=== PATIENT | male | born 1975 | race Caucasian/White ===

== ENCOUNTER 2017-05-30 15:25 | Emergency (ER) | payer BC ==
--- NOTE | 2017-05-30 15:46 | ER ---
Nurse's Notes [facility] Name: Francisco Barrera Age: 41 yrs Sex: Male : 1975 Arrival Date: 05/30/2017 Time: 15:26 Bed 11 Private MD: Ezra Garcia V Diagnosis: Radiculopathy Presentation: 05/30 15:32 Presenting complaint: Patient states: I was lifting something above my head and I felt la1 something tear by my left shoulder blade and since then I have had very bad pain in my back and left arm. Transition of care: patient was not received from another setting of care. Onset of symptoms was May 30, 2017. Initial Sepsis Screen: Does the patient meet any 2 criteria? No. Patient's initial sepsis screen is negative. Does the patient have a suspected source of infection? No. Patient initial sepsis screen negative. Care prior to arrival: None. 15:32 Method Of Arrival: Ambulatory la1 15:32 Acuity: TERESO 4 la1 Triage Assessment: 15:50 General: Appears uncomfortable, slender, well groomed, well developed, well nourished, rk2 Behavior is calm, cooperative. 15:50 Pain: Complains of pain in left scapular area and left arm. Neuro: Level of rk2 Consciousness is alert, obeys commands, Oriented to person, place, time, situation. Respiratory: Airway is patent Respiratory effort is even, unlabored. Derm: Skin is pink, warm \T\ dry. Musculoskeletal: Capillary refill < 3 seconds. Historical: - Allergies: 15:33 No Known Allergies; la1 - PMHx: 15:33 None; la1 - Immunization history:: Adult Immunizations up to date. - Social history:: Smoking status: Patient/guardian denies using tobacco. Screenin:50 Abuse screen: Denies threats or abuse. rk2 15:50 Nutritional screening: No deficits noted. Tuberculosis screening: No symptoms or risk rk2 factors identified. Fall Risk None identified. Vital Signs: 15:33 BP 131 / 95; Pulse 86; Resp 15; Temp 98.0(TE); Pulse Ox 100% on R/A; Weight 90.72 kg; la1 Height 6 ft. 0 in. (182.88 cm); 15:33 Body Mass Index 27.12 (90.72 kg, 182.88 cm) la1 ED Course: 15:26 Patient arrived in ED. as 15:26 Ezra Garcia MD is Private Physician. as 15:33 Triage completed. la1 15:33 Arm band placed on left wrist. la1 15:34 Nuria Mclaughlin FNP-C [facility]. kb 15:34 Andrés Gutierrez MD is Attending Physician. kb 15:35 Tracey Joyenr, RN is Primary Nurse. rk2 15:50 Patient has correct armband on for positive identification. Call light in reach. rk2 16:03 No provider procedures requiring assistance completed. Patient did not have IV access rk2 during this emergency room visit. Administered Medications: 15:57 Drug: TORadol 60 mg Route: IM; Site: left deltoid; rk2 16:03 Follow up: Response: Given \T\ DC rk2 Outcome: 15:46 Discharge ordered by . kb 16:03 Discharged to home ambulatory. rk2 16:03 Condition: unchanged 16:03 Discharge instructions given to patient, Prescriptions given X 2. 16:04 Patient left the ED. rk2 Signatures: Nuria Mclaughlin FNP-C FNP-Nancy Donahue Lee, RN RN la1 Tracey Joyner, MAXX RN rk2
--- NOTE | 2017-05-30 15:46 | EDPHYS ---
Physician Documentation [facility] Name: Francisco Barrera Age: 41 yrs Sex: Male : 1975 Arrival Date: 05/30/2017 Time: 15:26 Bed 11 Private MD: Ezra Garcia V ED Physician Andrés Gutierrez HPI: 05/30 15:44 This 41 yrs old Male presents to ER via Ambulatory with complaints of Back kb Pain. 15:44 The patient presents with pain that is acute. The symptoms are located in the left kb scapular area. Onset: The symptoms/episode began/occurred yesterday. The pain radiates to the left arm. Associated signs and symptoms: The patient has no apparent associated signs or symptoms. The problem was sustained when lifting heavy object. Modifying factors: The patient symptoms are alleviated by nothing, the patient symptoms are aggravated by any movement. Severity of symptoms: At their worst the symptoms were moderate, in the emergency department the symptoms are unchanged. The patient has not experienced similar symptoms in the past. The patient has not recently seen a physician. Pt states he was lifting a carport and felt a pop in behind left shoulder blade. States he has been uncomfortable since then. Tingling/pain radiates down left arm. . Historical: - Allergies: 15:33 No Known Allergies; la1 - PMHx: 15:33 None; la1 - Immunization history:: Adult Immunizations up to date. - Social history:: Smoking status: Patient/guardian denies using tobacco. ROS: 15:43 Constitutional: Negative for fever, chills, and weight loss, Cardiovascular: Negative kb for chest pain, palpitations, and edema, Respiratory: Negative for shortness of breath, cough, wheezing, and pleuritic chest pain, Abdomen/GI: Negative for abdominal pain, nausea, vomiting, diarrhea, and constipation, Skin: Negative for injury, rash, and discoloration, Neuro: Negative for headache, weakness, numbness, tingling, and seizure. 15:43 Back: Positive for pain at rest, pain with movement, of the left scapular area. 15:43 MS/extremity: Positive for tingling, of the left arm. Exam: 15:43 Constitutional: This is a well developed, well nourished patient who is awake, alert, kb and in no acute distress. Head/Face: Normocephalic, atraumatic. Neck: Trachea midline, no thyromegaly or masses palpated, and no cervical lymphadenopathy. Supple, full range of motion without nuchal rigidity, or vertebral point tenderness. No Meningismus. Chest/axilla: Normal chest wall appearance and motion. Nontender with no deformity. No lesions are appreciated. Cardiovascular: Regular rate and rhythm with a normal S1 and S2. No gallops, murmurs, or rubs. Normal PMI, no JVD. No pulse deficits. Respiratory: Lungs have equal breath sounds bilaterally, clear to auscultation and percussion. No rales, rhonchi or wheezes noted. No increased work of breathing, no retractions or nasal flaring. Abdomen/GI: Soft, non-tender, with normal bowel sounds. No distension or tympany. No guarding or rebound. No evidence of tenderness throughout. Back: No spinal tenderness. No costovertebral tenderness. Full range of motion. Skin: Warm, dry with normal turgor. Normal color with no rashes, no lesions, and no evidence of cellulitis. MS/ Extremity: Pulses equal, no cyanosis. Neurovascular intact. Full, normal range of motion. Neuro: Awake and alert, GCS 15, oriented to person, place, time, and situation. Cranial nerves II-XII grossly intact. Motor strength 5/5 in all extremities. Sensory grossly intact. Cerebellar exam normal. Normal gait. Vital Signs: 15:33 BP 131 / 95; Pulse 86; Resp 15; Temp 98.0(TE); Pulse Ox 100% on R/A; Weight 90.72 kg; la1 Height 6 ft. 0 in. (182.88 cm); 15:33 Body Mass Index 27.12 (90.72 kg, 182.88 cm) la1 MDM: 15:34 Patient medically screened. kb 15:43 Data reviewed: vital signs, nurses notes. Data interpreted: Pulse oximetry: on room air kb is 100 %. Interpretation: normal. Counseling: I had a detailed discussion with the patient and/or guardian regarding: the historical points, exam findings, and any diagnostic results supporting the discharge/admit diagnosis, the need for outpatient follow up, a family practitioner, to return to the emergency department if symptoms worsen or persist or if there are any questions or concerns that arise at home. 15:44 ED course: Pt has full ROM of left shoulder/arm. No spinal tenderness upon palpation. kb No tenderness upon palpation of shoulder. . Administered Medications: 15:57 Drug: TORadol 60 mg Route: IM; Site: left deltoid; rk2 16:03 Follow up: Response: Given \T\ DC rk2 Disposition: 05/31 07:50 Co-signature as Attending Physician, Andrés Gutierrez MD Available for consultation at ps1 all times. . Disposition: 05/30/17 15:46 Discharged to Home. Impression: Radiculopathy. - Condition is Stable. - Discharge Instructions: Cervical Radiculopathy, [id number]. - Prescriptions for Prednisone 20 mg Oral Tablet - take 1 tablet by ORAL route once daily for 5 days; 5 tablet. Cyclobenzaprine 10 mg Oral Tablet - take 1 tablet by ORAL route every 8 hours As needed; 21 tablet. - Medication Reconciliation Form, Thank You Letter, Antibiotic Education, Prescription Opioid Use, Work release form form. - Follow up: Emergency Department; When: As needed; Reason: Worsening of condition. Follow up: Private Physician; When: 2 - 3 days; Reason: Recheck today's complaints, Continuance of care, Re-evaluation by your physician. Signatures: Nuria Mclaughlin, [employer]-Nilesh Turner RN RN la1 Andrés Gutierrez MD MD ps1 Tracey Joyner RN RN rk2
[2017-05-30] MEDS ORDERED: KETOROLAC 30 MG/ML INJ ONE (15:50)
== END 2017-05-30 16:04 | disposition home or self-care (01) ==
LOC: ER 15:25
DX: M54.10 Radiculopathy, site unspecified (principal)
CPT/HCPCS: 96372; 99283

== ENCOUNTER 2017-07-16 20:45 | Emergency (ER) | payer BC, SELFPAY ==
[2017-07-16] MEDS ORDERED: MECLIZINE HCL 12.5 MG TAB ONE ×2 (21:16→21:18)
[2017-07-16] MEDS ORDERED: NA CHLORIDE 0.9% 1,000 ML ONE ×2 (21:16→22:50)
[2017-07-16 21:43] LABS: Absolute Lymphocytes (CBC) 1.8 K/uL (0.7-4.9); Absolute Monocytes 1.2 K/uL (0.1-1.3); Absolute Neutrophil 11.4 K/uL (1.8-8.0); Basophils % 0.4 % (0-1.3); Eosinophils % 0.3 % (0-4.4); Hematocrit 48.7 % (39.6-49.0); Lymphocytes % 12.3 % (15.3-44.8); MCH 31.2 pg (27.0-35.0); MCV 89.2 fL (80-100); MPV 8.9 fL (7.6-11.3); Monocytes % 8.3 % (3.3-12.3); RBC Red Blood Cell Count 5.45 M/uL (4.33-5.43)
[2017-07-16 21:48] LABS: Potassium 3.5 mEq/L (3.6-5.0)
[2017-07-16 21:51] LABS: Albumin 4.5 g/dL (3.2-5.5); Bilirubin Total 0.7 mg/dL (0.3-1.2); Protein, Total 7.7 g/dL (6.0-8.3)
[2017-07-16 23:11] LABS: Absolute Lymphocytes (CBC) 1.7 K/uL (0.7-4.9); Absolute Monocytes 1.1 K/uL (0.1-1.3); Absolute Neutrophil 11.3 K/uL (1.8-8.0); Basophils % 0.5 % (0-1.3); Eosinophils % 0.1 % (0-4.4); Hematocrit 46.5 % (39.6-49.0); Lymphocytes % 11.9 % (15.3-44.8); MCH 31.2 pg (27.0-35.0); MCV 89.6 fL (80-100); MPV 8.5 fL (7.6-11.3); Monocytes % 7.6 % (3.3-12.3); RBC Red Blood Cell Count 5.19 M/uL (4.33-5.43)
[2017-07-16 23:21] LABS: Urine Blood NEGATIVE (NEG); Urine Glucose NEGATIVE (NEG); Urine Protein NEGATIVE (NEG); Urine pH 6.5 (5.0-7.0)
[2017-07-16 23:25] LABS: Barbiturates NEGATIVE; Benzodiazepines NEGATIVE; Cocaine NEGATIVE; Opiates NEGATIVE; Phencyclidine NEGATIVE; THC Cannibis NEGATIVE
[2017-07-16 23:26] LABS: Potassium 3.6 mEq/L (3.6-5.0)
[2017-07-16 23:29] LABS: METHAMPHETAM POSITIVE (NEGATIVE)
[2017-07-16 23:32] LABS: Albumin 4.1 g/dL (3.2-5.5); Bilirubin Direct 0.1 mg/dL (0-0.2); Bilirubin Total 0.7 mg/dL (0.3-1.2); Magnesium 1.9 mg/dL (1.8-2.5); Protein, Total 7.2 g/dL (6.0-8.3)
[2017-07-16 23:33] LABS: Protime INR 1.05
[2017-07-16] MEDS ORDERED: LORazepam 2 MG/ML VIAL ONE (23:34)
[2017-07-16 23:36] LABS: CKMB Creatine Kinase MB 0.9 ng/ml (0.3-4.0)
--- NOTE | 2017-07-16 23:50 | EDPHYS ---
Physician Documentation [facility] Name: Francisco Barrera Age: 41 yrs Sex: Male : 1975 Arrival Date: 07/16/2017 Time: 20:46 Bed 13 Private MD: ED Physician Sae King Historical: - Home Meds: 07/16 20:53 gabapentin 100 mg oral cap 3 caps 3 times per day [Active]; tl3 - PMHx: 20:53 None; tl3 - PSHx: 20:53 None; tl3 - Immunization history:: Adult Immunizations up to date. - Social history:: Smoking status: Patient/guardian denies using tobacco, never smoked. - Ebola Screening: : Patient denies travel to an Ebola-affected area in the 21 days before illness onset. Vital Signs: 20:53 BP 163 / 11; Pulse 107; Resp 20; Temp 97.02(T); Pulse Ox 100% ; Weight 86.18 kg; Height tl3 6 ft. 1 in. (185.42 cm); 22:15 BP 143 / 105 LA Sitting (auto/reg); Pulse 126 LA; Resp 19; Pulse Ox 99% on R/A; bs1 23:30 BP 164 / 102; Pulse 142; Resp 15; Pulse Ox 100% on R/A; bs1 23:39 BP 152 / 97; Pulse 125; Resp 13 S; Pulse Ox 100% on 2 lpm NC; bs1 23:48 BP 151 / 96; Pulse 126; Resp 15; Pulse Ox 100% on R/A; bs1 20:53 Body Mass Index 25.07 (86.18 kg, 185.42 cm) tl3 MDM: 21:02 Patient medically screened. 07/16 21:07 Order name: CBC with Diff; Complete Time: 21:58 07/16 21:58 Interpretation: Normal except: WBC 14.5; RBC 5.45; LYM% 12.3; STEVEN% 78.7; NEUT A 11.4. 07/16 21:07 Order name: CMP; Complete Time: 21:58 07/16 21:58 Interpretation: Normal except: K 3.5; GLUC 193; GFR 66. 07/16 22:37 Order name: Basic Metabolic Panel; Complete Time: 06:32 07/16 22:37 Order name: BNP; Complete Time: 06:32 tw4 07/16 22:37 Order name: CBC with Diff; Complete Time: 06:32 4 07/16 22:37 Order name: Ckmb; Complete Time: 06:32 4 07/16 22:37 Order name: CPK; Complete Time: 06:32 tw4 07/16 22:37 Order name: LFT's; Complete Time: 06:32 4 07/16 22:37 Order name: Magnesium; Complete Time: 06:32 4 07/16 22:37 Order name: PT-INR; Complete Time: 06:32 tw4 07/16 22:37 Order name: Ptt, Activated; Complete Time: 06:32 4 07/16 22:37 Order name: Troponin (emerg Dept Use Only); Complete Time: 06:32 4 07/16 22:41 Order name: UDS; Complete Time: 06:32 bs1 07/16 23:15 Order name: Urine Dipstick--Ancillary (enter results); Complete Time: 06:32 ms 07/16 22:37 Order name: XRAY Chest (1 view); Complete Time: 06:32 4 07/16 22:37 Order name: EKG; Complete Time: 22:38 4 07/16 22:37 Order name: Cardiac monitoring; Complete Time: 23:37 4 07/16 22:37 Order name: EKG - Nurse/Tech; Complete Time: 23:37 4 07/16 22:37 Order name: IV Saline Lock; Complete Time: 23:37 4 07/16 22:37 Order name: Labs collected and sent; Complete Time: 23:37 4 07/16 22:37 Order name: O2 Per Protocol; Complete Time: 23:38 tw4 07/16 22:37 Order name: O2 Sat Monitoring; Complete Time: 23:37 tw4 07/16 22:37 Order name: Urine Dipstick-Ancillary (obtain specimen); Complete Time: 23:50 tw4 Administered Medications: 21:25 Drug: Meclizine 25 mg Route: PO; bs1 22:27 Follow up: Response: No adverse reaction bs1 21:32 Drug: NS 0.9% 1000 ml Route: IV; Rate: 1 bolus; Site: right antecubital; bs1 22:27 Follow up: IV Status: Completed infusion bs1 22:58 Drug: NS 0.9% 1000 ml Route: IV; Rate: 1 bolus; Site: right antecubital; bs1 07/17 00:10 Follow up: IV Status: Completed infusion bs1 07/16 23:39 Drug: Ativan 1 mg Route: IVP; Site: right antecubital; bs1 07/17 00:07 Follow up: Response: No adverse reaction bs1 Point of Care Testing: Blood Glucose: 07/16 21:00 Blood Glucose: 183 mg/dL; tl3 Ranges: Critical Glucose Levels:Adult <50 mg/dl or >400 mg/dl <40 mg/dl or >180 mg/dl Disposition: 07/16/17 23:50 Discharged to Home. Impression: Other psychoactive substance abuse with intoxication, uncomplicated. - Condition is Stable. - Discharge Instructions: Alcohol and Drug Addiction, Finding Treatment, Polysubstance Abuse. - Medication Reconciliation Form, Thank You Letter, Antibiotic Education, Prescription Opioid Use form. - Follow up: Private Physician; When: As needed; Reason: Recheck today's complaints, Continuance of care, Re-evaluation by your physician. - Problem is new. - Symptoms have improved. Addendum: 07/29/2017 06:33 Addendum: Pt is a 41 year old male that states that he drank too much water and feels t w4 "overhyrated" Pt states that he has been feeling dizzy. Pt denies CP, SOB,nausea, vomiting. Addendum: ROS: General: denies fever, chills, malaise ENT: denies sore throat, ear pain Resp: denies SOB, TIAN, cough CV: denies CP,palpitations, Abdomen: denies abdominal pain, nausea, vomiting Ext; denies injury edema, Neuro: positive for dizziness, negative for weakness, numbness. Addendum: PE: General: well developed male in NAD HEENT: PERRLA, EOMI Resp: CTAB, no resp distress CV: RRR, nl S1, S2, no murmurs or gallops. Abdomen: soft, nondistended, nontender, nl BS Ext: nontender, no edema Neuro: alert and oriented times three, CN grossly intact, . Addendum: ED course: pt was found to have a positive drug screen that was positive for amphetamines. Pt later admitted taking an unknown substance that he got from "a waylon in a bar". Pt states that his symptoms occurred soon thereafter. Pt given Ativan for anxiety. Pt counseled on drug use and told to return to the ED if symptoms worsen. Signatures: Dispatcher [employer] EDMS Tami López RN RN aa1 Pearl Abreu RN RN bs1 Sae King MD MD tw4 Mariana Arango RN RN tl3 Corrections: (The following items were deleted from the chart) 07/17 00:10 07/16 23:50 07/16/2017 23:50 Discharged to Home. Impression: Other psychoactive aa1 substance abuse with intoxication, uncomplicated. Condition is Stable. Forms are Medication Reconciliation Form, Thank You Letter, Antibiotic Education, Prescription Opioid Use. Follow up: Private Physician; When: As needed; Reason: Recheck today's complaints, Continuance of care, Re-evaluation by your physician. Problem is new. Symptoms have improved. tw4
--- NOTE | 2017-07-16 23:50 | ER ---
Nurse's Notes [facility] Name: Francisco Barrera Age: 41 yrs Sex: Male : 1975 Arrival Date: 07/16/2017 Time: 20:46 Bed 13 Private MD: Diagnosis: Other psychoactive substance abuse with intoxication, uncomplicated Presentation: 07/16 20:50 Presenting complaint: Patient states: feels like he is going to pass out, drank 200 tl3 ounces of water within 12 hours. Transition of care: patient was not received from another setting of care. Onset of symptoms was July 16, 2017. Risk Assessment: Do you want to hurt yourself or someone else? Patient reports no desire to harm self or others. Risk Assessment: Do you want to hurt yourself or someone else? Patient reports no desire to harm self or others. Initial Sepsis Screen: Does the patient meet any 2 criteria? No. Patient's initial sepsis screen is negative. Does the patient have a suspected source of infection? No. Patient's initial sepsis screen is negative. Care prior to arrival: None. 20:50 Method Of Arrival: Ambulatory tl3 20:50 Acuity: TERESO 3 tl3 Triage Assessment: 20:53 General: Appears distressed, uncomfortable, Behavior is cooperative. Pain: Denies pain. tl3 Historical: - Home Meds: 20:53 gabapentin 100 mg oral cap 3 caps 3 times per day [Active]; tl3 - PMHx: 20:53 None; tl3 - PSHx: 20:53 None; tl3 - Immunization history:: Adult Immunizations up to date. - Social history:: Smoking status: Patient/guardian denies using tobacco, never smoked. - Ebola Screening: : Patient denies travel to an Ebola-affected area in the 21 days before illness onset. Screenin:26 Abuse screen: Denies threats or abuse. Denies injuries from another. Nutritional bs1 screening: No deficits noted. Tuberculosis screening: No symptoms or risk factors identified. Fall Risk None identified. Assessment: 21:05 General: Appears uncomfortable, Behavior is cooperative, anxious. Pain: Denies pain. bs1 Neuro: Level of Consciousness is awake, alert, obeys commands, Oriented to person, place, time, situation, Reports dizziness, a syncopal episode weakness. Cardiovascular: Denies chest pain, Heart tones S1 S2 present Capillary refill < 3 seconds Patient's skin is warm and dry. Respiratory: Reports shortness of breath at rest Airway is patent Trachea midline Respiratory effort is even, Respiratory pattern is regular, symmetrical, Breath sounds are clear bilaterally. GI: No deficits noted. No signs and/or symptoms were reported involving the gastrointestinal system. : No deficits noted. No signs and/or symptoms were reported regarding the genitourinary system. EENT: No deficits noted. No signs and/or symptoms were reported regarding the EENT system. Derm: Skin is intact, Skin is pink, warm \\T\\ dry. Musculoskeletal: Circulation, motion, and sensation intact. Capillary refill < 3 seconds, Range of motion: intact in all extremities. 22:36 Reassessment: Patient states "I am having chest pressure on my left side of my chest." bs1 Informed Dr King, gave orders to put in cardiac work up and 1L Bolus NS due to heart rate still elevated at 130. 23:30 Reassessment: Patient states to nurse "I took drugs around 1:30 pm today from a waylon at [facility] a bar, I thought it was ectasy but I have taken that before and I never felt like this, this is something different, both my hands are tingling, I am freaking out." Informed Dr King, blood pressure 164/102, heart rate 142, 100% on room air. 23:39 Reassessment: Applied oxygen at 2L NC for patient comfort, oxygen saturation 100% on bs room air. Vital Signs: 20:53 BP 163 / 11; Pulse 107; Resp 20; Temp 97.02(T); Pulse Ox 100% ; Weight 86.18 kg; Height tl3 6 ft. 1 in. (185.42 cm); 22:15 BP 143 / 105 LA Sitting (auto/reg); Pulse 126 LA; Resp 19; Pulse Ox 99% on R/A; bs1 23:30 BP 164 / 102; Pulse 142; Resp 15; Pulse Ox 100% on R/A; bs1 23:39 BP 152 / 97; Pulse 125; Resp 13 S; Pulse Ox 100% on 2 lpm NC; bs1 23:48 BP 151 / 96; Pulse 126; Resp 15; Pulse Ox 100% on R/A; bs1 20:53 Body Mass Index 25.07 (86.18 kg, 185.42 cm) tl3 ED Course: 20:46 Patient arrived in ED. es 20:52 Triage completed. tl3 20:53 Arm band placed on right wrist. tl3 21:02 Sae King MD is Attending Physician. tw4 21:12 Pearl Abreu, MAXX is Primary Nurse. bs1 22:26 Patient has correct armband on for positive identification. Bed in low position. Call bs1 light in reach. Side rails up X 1. Pulse ox on. NIBP on. 22:55 XRAY Chest (1 view) In Process Unspecified. EDMS 23:57 Radiology exam delayed due to ON HOLD PER DOCTOR. cw1 07/17 00:09 No provider procedures requiring assistance completed. IV discontinued, bleeding bs1 controlled, No redness/swelling at site. Pressure dressing applied. Administered Medications: 07/16 21:25 Drug: Meclizine 25 mg Route: PO; bs1 22:27 Follow up: Response: No adverse reaction bs1 21:32 Drug: NS 0.9% 1000 ml Route: IV; Rate: 1 bolus; Site: right antecubital; bs1 22:27 Follow up: IV Status: Completed infusion bs1 22:58 Drug: NS 0.9% 1000 ml Route: IV; Rate: 1 bolus; Site: right antecubital; bs1 07/17 00:10 Follow up: IV Status: Completed infusion bs1 07/16 23:39 Drug: Ativan 1 mg Route: IVP; Site: right antecubital; bs1 07/17 00:07 Follow up: Response: No adverse reaction bs1 Point of Care Testing: Blood Glucose: 07/16 21:00 Blood Glucose: 183 mg/dL; tl3 Ranges: Outcome: 23:50 Discharge ordered by . tw4 07/17 00:09 Discharged to home ambulatory, with significant other. aa1 Condition: good Discharge instructions given to patient, Instructed on discharge instructions, follow up and referral plans. Demonstrated understanding of instructions, follow-up care. 00:09 Discharged to home ambulatory. bs1 00:09 Condition: stable 00:09 Discharge instructions given to patient, Instructed on discharge instructions, follow up and referral plans. Demonstrated understanding of instructions, follow-up care. 00:10 Patient left the ED. aa1 Signatures: Dispatcher [employer] Tami De Los Santos RN RN aa1 Becky Todd Monae, Crystal cw1 Pearl Abreu, RN RN bs1 Sae King MD MD tw4 Mariana Arango RN RN tl3 Corrections: (The following items were deleted from the chart) 07/16 22:35 21:05 Cardiovascular: Reports palpitations, Denies chest pain, Heart tones S1 S2 bs1 present Capillary refill < 3 seconds Patient's skin is warm and dry. bs1 22:35 21:05 Respiratory: Airway is patent Trachea midline Respiratory effort is even, bs1 Respiratory pattern is regular, symmetrical, Breath sounds are clear bilaterally. bs1 07/17 00:07 07/16 23:30 Reassessment: Patient states to nurse "I took drugs around 1:30 pm today bs1 from a waylon at a bar, I thought it was ectasy but I have taken that before and I never felt like this, this is something different, both my hands are tingling, I am freaking out." Informed Dr King. bs1
--- NOTE | 2017-07-17 10:18 | RAD REPORT ---
EXAM DESCRIPTION: Cristian Single View07/16/2017 10:55 pm CLINICAL HISTORY: Chest pain COMPARISON: none FINDINGS: The lungs appear clear of acute infiltrate. The heart is normal size IMPRESSION: No acute abnormalities displayed
--- NOTE | 2017-07-17 10:40 | EKG ---
Test Date: 2017-07-16 Test Time: 22:52:02 [employer] Worker: DRISS MEASUREMENT RESULTS: Intervals: Rate: 126 MD: 132 QRSD: 84 QT: 298 QTc: 431 [place]: P: 53 MD: 132 QRS: 99 T: 64 INTERPRETIVE STATEMENTS: Sinus tachycardia Rightward axis Borderline ECG No previous ECG available for comparison Electronically Signed On 07-17-17 10:40:08 CDT by Gigi Richardson
== END 2017-07-17 00:10 | disposition home or self-care (01) ==
LOC: ER 20:45
DX: F19.120 Other psychoactive substance abuse with intoxication, uncomplicated (principal)
CPT/HCPCS: 36415; 71045; 80048; 80053; 80076; 80307; 81003; 82550; 82553; 82962; 83735; 83880; 84484; 85025; 85610; 85730; 93005; 96361; 96374; 99284; J7030